=== PATIENT | female | born 1955 | race Two or more races ===

== ENCOUNTER 2019-03-09 10:01 | Observation (INO) | payer MEDICARE, MEDICAID ==
[2019-03-09] MEDS ORDERED: NORMAL SALINE 1000 ML 1,000 ML IV ONE (10:17)
[2019-03-09] MEDS ORDERED: DIPH/PERTUSS(ACELL)/TETANUS VAC/PF 0.5 ML SYR (>=10YO) IM ONE (10:17)
--- NOTE | 2019-03-09 10:20 | ER Document Report ---
ED Medical Screen (RME) - General Stated Complaint: FALL Time Seen by Provider: 03/09/19 10:09 Mode of Arrival: Medic Information source: Patient Notes: Patient states that she was walking outside with her coffee and she got dizzy. Patient states that the next thing she knew she woke up on the pavement after having a syncopal episode. Patient with left-sided facial swelling, ecchymosis and laceration to the lower lip. Patient denies any chest pain back pain or abdominal pain. Patient denies any headache nausea or vomiting. Patient uncertain of last tetanus immunization. Patient denies any recent changes in her medications. Patient only reports a history of degenerative disc disease and restless leg syndrome. I have greeted and performed a rapid initial assessment of this patient. A comprehensive ED assessment and evaluation of the patient, analysis of test results and completion of the medical decision making process will be conducted by additional ED providers. - Related Data Allergies/Adverse Reactions: acetaminophen [From Percocet] Allergy (Verified 03/09/19 10:15) oxycodone [From Percocet] Allergy (Verified 03/09/19 10:15) Physical Exam - Vital signs Vitals: Temp Pulse Resp BP Pulse Ox 98.7 F 63 16 132/71 H 96 03/09/19 10:13 03/09/19 10:13 03/09/19 10:13 03/09/19 10:13 03/09/19 10:13 - General Notes: Left side facial swelling and ecchymosis to the left periorbital area and left maxillary sinus area. Patient with laceration to left side of lower lip. Course - Vital Signs Vital signs: Temp Pulse Resp BP Pulse Ox 98.7 F 63 16 132/71 H 96 03/09/19 10:13 03/09/19 10:13 03/09/19 10:13 03/09/19 10:13 03/09/19 10:13
--- NOTE | 2019-03-09 10:41 | RADIOLOGY REPORT (SQ) ---
EXAM DESCRIPTION: CHEST 2 VIEWS COMPLETED DATE/TIME: 03/09/2019 10:30 am REASON FOR STUDY: syncope COMPARISON: None. EXAM PARAMETERS: NUMBER OF VIEWS: two views TECHNIQUE: Digital Frontal and Lateral radiographic views of the chest acquired. RADIATION DOSE: NA LIMITATIONS: none FINDINGS: LUNGS AND PLEURA: No opacities, masses or pneumothorax. No pleural effusion. MEDIASTINUM AND HILAR STRUCTURES: No masses or contour abnormalities. HEART AND VASCULAR STRUCTURES: Heart normal size. No evidence for failure. BONES: No acute findings. HARDWARE: None in the chest. OTHER: No other significant finding. IMPRESSION: No acute abnormality of the lungs. No focal airspace opacity. TECHNICAL DOCUMENTATION: JOB ID: [id number] [email or web address]- All Rights Reserved Reading location - IP/workstation name: [email or web address]
--- NOTE | 2019-03-09 11:04 | RADIOLOGY REPORT (SQ) ---
EXAM DESCRIPTION: CT CERVICAL SPINE WITHOUT COMPLETED DATE/TIME: 03/09/2019 10:51 am REASON FOR STUDY: syncope, facial injury COMPARISON: None. TECHNIQUE: Axial images acquired through the cervical spine without intravenous contrast. Images re viewed with lung, soft tissue and bone windows. Reconstructed coronal and sagittal MPR images review ed. Images stored on PACS. All CT scanners at this facility use dose modulation, iterative reconstruction, and/or weight based d osing when appropriate to reduce radiation dose to as low as reasonably achievable (ALARA). [facility]: Dose Right [facility]: CareDose [facility]: Dose Right [facility]: Teradose 4D [facility]: [employer] RADIATION DOSE: CT Rad equipment meets quality standard of care and radiation dose reduction techniq ues were employed. CTDIvol: 17.5 mGy. DLP: 368 mGy-cm. mGy. LIMITATIONS: None. FINDINGS: ALIGNMENT: Anatomic. MINERALIZATION: Normal. VERTEBRAL BODIES: No fractures or dislocation. DISCS: Status post anterior cervical fusion of C5 through C7. FACETS, LATERAL MASSES, POSTERIOR ELEMENTS: No fractures. No dislocation. No acute findings. HARDWARE: None in the spine. VISUALIZED RIBS: No fractures. LUNG APICES AND SOFT TISSUES: No significant or acute findings. OTHER: No other significant finding. IMPRESSION: No fracture or static subluxation of the cervical spine. TECHNICAL DOCUMENTATION: JOB ID: [id number] Quality ID # [id number]: Final reports with documentation of one or more dose reduction techniques (e.g., Au tomated exposure control, adjustment of the mA and/or kV according to patient size, use of iterative reconstruction technique) 2010 [employer]- All Rights Reserved Reading location - IP/workstation name: [email or web address]
--- NOTE | 2019-03-09 11:05 | RADIOLOGY REPORT (SQ) ---
EXAM DESCRIPTION: CT FACIAL AREA WITHOUT COMPLETED DATE/TIME: 03/09/2019 10:51 am REASON FOR STUDY: syncope, facial injury COMPARISON: None. TECHNIQUE: Noncontrasted images through the facial bones and orbits windowed for bone and soft tissu e. Additional coronal and sagittal reconstructed images reviewed. All images stored on PACS. All CT scanners at this facility use dose modulation, iterative reconstruction, and/or weight based d osing when appropriate to reduce radiation dose to as low as reasonably achievable (ALARA). [facility]: Dose Right [facility]: CareDose [facility]: Dose Right [facility]: Teradose 4D [facility]: [employer] RADIATION DOSE: CT Rad equipment meets quality standard of care and radiation dose reduction techniq ues were employed. CTDIvol: 30.4 mGy. DLP: 862 mGy-cm. mGy. LIMITATIONS: Excessive patient movement. Scan repeated. FINDINGS: FACIAL BONES: Minimally displaced fracture of the left orbital floor. Nondisplaced left n canelo fracture. ORBITS: No evidence of extraocular muscle entrapment. PARANASAL SINUSES: Fluid left maxillary sinus. SOFT TISSUES: Left facial hematoma. INFERIOR BRAIN: See separate report. OTHER: No other significant finding. IMPRESSION: Limitations due to motion. Fracture of the left orbital floor. Left nasal fracture. TECHNICAL DOCUMENTATION: JOB ID: [id number] Quality ID # [id number]: Final reports with documentation of one or more dose reduction techniques (e.g., Au tomated exposure control, adjustment of the mA and/or kV according to patient size, use of iterative reconstruction technique) 2010 [employer]- All Rights Reserved Reading location - IP/workstation name: [email or web address]
--- NOTE | 2019-03-09 11:06 | RADIOLOGY REPORT (SQ) ---
EXAM DESCRIPTION: CT HEAD WITHOUT COMPLETED DATE/TIME: 03/09/2019 10:51 am REASON FOR STUDY: syncope, head injury COMPARISON: None. TECHNIQUE: Axial images acquired through the brain without intravenous contrast. Images reviewed wi th bone, brain and subdural windows. Additional sagittal and coronal reconstructions were generated. Images stored on PACS. All CT scanners at this facility use dose modulation, iterative reconstruction, and/or weight based d osing when appropriate to reduce radiation dose to as low as reasonably achievable (ALARA). [facility]: Dose Right [facility]: CareDose [facility]: Dose Right [facility]: Teradose 4D [facility]: Smart [employer] RADIATION DOSE: CT Rad equipment meets quality standard of care and radiation dose reduction techniq ues were employed. CTDIvol: 53.2 mGy. DLP: 991 mGy-cm. mGy. LIMITATIONS: Patient movement. FINDINGS: VENTRICLES: Normal size and contour. CEREBRUM: No masses. No hemorrhage. No midline shift. No evidence for acute infarction. Normal gra y/white matter differentiation. No areas of low density in the white matter. CEREBELLUM: No masses. No hemorrhage. No alteration of density. No evidence for acute infarction. EXTRAAXIAL SPACES: No fluid collections. No masses. ORBITS AND GLOBE: See separate report of the same date. CALVARIUM: No fracture. PARANASAL SINUSES: See separate report of the same date. SOFT TISSUES: Left facial hematoma. OTHER: No other significant finding. IMPRESSION: Normal brain. EVIDENCE OF ACUTE STROKE: NO. COMMENT: Quality ID # 436: Final reports with documentation of one or more dose reduction techniques (e.g., Automated exposure control, adjustment of the mA and/or kV according to patient size, use of iterative reconstruction technique) TECHNICAL DOCUMENTATION: JOB ID: [id number] [employer]- All Rights Reserved Reading location - IP/workstation name: [email or web address]
[2019-03-09 11:13] LABS: ABSOLUTE BASOPHILS # (AUTO) 0.1 10^3/uL (0.0-0.2); ABSOLUTE LYMPHOCYTES (AUTO) 1.2 10^3/uL (0.5-4.7); ABSOLUTE MONOCYTES (AUTO) 0.8 10^3/uL (0.1-1.4); ABSOLUTE NEUT (AUTO) 12.9 10^3/uL (1.7-8.2); BASOPHILS % (AUTO) 0.5 % (0-2); EOSINOPHILS % (AUTO) 0.2 % (0-6); HEMATOCRIT 45.8 % (36.0-47.0); HEMOGLOBIN 15.2 g/dL (12.0-15.5); MEAN CORPUSCULAR HEMOGLOBIN 30.1 pg (27.0-33.4); MEAN CORPUSCULAR HGB CONC 33.2 g/dL (32.0-36.0); MEAN CORPUSCULAR VOLUME 91 fl (80-97); MONOCYTES % (AUTO) 5.5 % (3-13); PLATELET COUNT 307 10^3/uL (150-450); RED BLOOD COUNT 5.05 10^6/uL (3.72-5.28); RED CELL DISTRIBUTION WIDTH 14.4 % (11.5-14.0); SEGMENTED NEUTROPHILS % (AUTO) 85.8 % (42-78); TOTAL CELLS COUNTED % (AUTO) 100 %
[2019-03-09 11:26] LABS: ALBUMIN 4.3 g/dL (3.5-5.0); ALKALINE PHOSPHATASE 87 U/L (38-126); ANION GAP 10 (5-19); ASPARTATE AMINO TRANSFERASE 24 U/L (14-36); BILIRUBIN,DIRECT 0.2 mg/dL (0.0-0.4); BILIRUBIN,TOTAL 0.4 mg/dL (0.2-1.3); BLOOD UREA NITROGEN 13 mg/dL (7-20); CALCIUM 9.7 mg/dL (8.4-10.2); CARBON DIOXIDE 25 mmol/L (22-30); CHLORIDE 106 mmol/L (98-107); GLUCOSE 117 mg/dL (75-110); POTASSIUM 4.6 mmol/L (3.6-5.0); TOTAL PROTEIN 6.9 g/dL (6.3-8.2)
[2019-03-09 12:08] LABS: APPEARANCE,URINE CLEAR; BILIRUBIN,URINE NEGATIVE (NEGATIVE); COLOR,URINE YELLOW; GLUCOSE, URINE NEGATIVE (NEGATIVE); KETONES,URINE TRACE mg/dL (NEGATIVE); LEUKOCYTE ESTERASE,URINE NEGATIVE (NEGATIVE); NITRITE,URINE NEGATIVE (NEGATIVE); PROTEIN,URINE NEGATIVE (NEGATIVE); URINE SPECIFIC GRAVITY 1.013; UROBILINOGEN,URINE NEGATIVE mg/dL (<2.0)
--- NOTE | 2019-03-09 12:38 | ER Document Report ---
Entered by OK RANKIN SCRIBE 03/09/19 1213 Acting as scribe for:CONOR MENENDEZ MD ED General - General Chief Complaint: Fall Injury Stated Complaint: FALL Time Seen by Provider: 03/09/19 10:09 Mode of Arrival: Medic Notes: Patient is a 63-year-old female presenting to the emergency department after she experienced a fall. Patient states that she was drinking coffee this morning on the sidewalk, she felt raindrops and attempted to get shade. Patient states that she immediately had a "drunk feeling" upon asking further questions she states it was kind of like a dizziness, lightheadedness. Patient states that after having that feeling she does not recall anything. Patient states that she is feeling nauseous, she is also experiencing abdominal pain. Patient denies having any chest pain, palpitation, fever, or having a history of heart attacks, strokes. TRAVEL OUTSIDE OF THE [place] IN LAST 30 DAYS: No - Related Data Allergies/Adverse Reactions: acetaminophen [From Percocet] Allergy (Verified 03/09/19 10:15) oxycodone [From Percocet] Allergy (Verified 03/09/19 10:15) Past Medical History - General Information source: Patient - Social History Smoking Status: Current Some Day Smoker Cigarette use (# per day): Yes Chew tobacco use (# tins/day): No Frequency of alcohol use: None Drug Abuse: None Family History: Reviewed & Not Pertinent - Past Medical History Cardiac Medical History: Denies: Other - Heart attacks, [place] Neurological Medical History: Denies: Hx Cerebrovascular Accident Review of Systems - Review of Systems Constitutional: No symptoms reported. denies: Fever EENT: No symptoms reported Cardiovascular: No symptoms reported Respiratory: No symptoms reported Gastrointestinal: See HPI, Abdominal pain, Nausea Genitourinary: No symptoms reported Female Genitourinary: No symptoms reported Musculoskeletal: No symptoms reported Skin: No symptoms reported Hematologic/Lymphatic: No symptoms reported Neurological/Psychological: No symptoms reported -: Yes All other systems reviewed and negative Physical Exam - Vital signs Vitals: Temp Pulse Resp BP Pulse Ox 98.7 F 63 16 132/71 H 96 03/09/19 10:13 03/09/19 10:13 03/09/19 10:13 03/09/19 10:13 03/09/19 10:13 - Notes Notes: Physical Exam: General: Alert, appears well. HEENT: Lip laceration at the left lower lip, half a centimeter deep, 1 cm long, does not cross the vermilion line. PERRL, negative hiphnema. Multiple contusions on the face. Left maxillary contusion, left forehead contusion. Negative septal hematoma. Extraocular movements intact. Oropharynx clear. Neck: Supple. Non-tender. Respiratory: No respiratory distress. Clear and equal breath sounds bilaterally. Cardiovascular: Regular rate and rhythm. Abdominal: Normal Inspection. Non-tender. No distension. Normal Bowel Sounds. Back: Midline cervical musculature tenderness to palpation. No pain in lumbar spine. No deformity or step off. Extremities: Moves all four extremities. Upper extremities: Normal inspection. Normal ROM. Lower extremities: Normal inspection. No edema. Normal ROM. Neurological: Normal cognition. AAOx4. Normal speech. Psychological: Normal affect. Normal Mood. Skin: Warm. Dry. Normal color. Course - Re-evaluation Re-evalutation: 03/09/19 12:37 Patient has been able to space orbital floor fracture with no entrapment and no pain with ocular movement and nondisplaced nasal fracture. Discussed case with Dr. Kuhn, will be admitted for syncopal work-up at this time - Vital Signs Vital signs: Temp Pulse Resp BP Pulse Ox 98.5 F 58 L 13 125/82 95 03/11/19 12:00 03/11/19 12:00 03/11/19 12:00 03/11/19 12:00 03/11/19 12:00 - Laboratory Result Diagrams: 03/11/19 05:29 03/11/19 05:29 Laboratory results interpreted by me: 03/09/19 03/09/19 03/09/19 10:40 10:40 11:50 WBC 15.0 H RDW 14.4 H Seg Neutrophils % 85.8 H Lymphocytes % 8.0 L Absolute Neutrophils 12.9 H Glucose 117 H Urine Ketones TRACE H Urine Blood MODERATE H Discharge - Discharge Clinical Impression: Syncope and collapse, Facial trauma Condition: Good Disposition: ADMITTED INPATIENT Admitting Provider: Hattie (Hospitalist) Unit Admitted: Telemetry Scribe Attestation: 03/11/19 13:46 I personally performed the services described documentation, reviewed and edited the documentation which was dictated to describe my presence, and it accurately records my words and actions. I personally performed the services described in the documentation, reviewed and edited the documentation which was dictated to the scribe in my presence, and it accurately records my words and actions.
--- NOTE | 2019-03-09 15:41 | RADIOLOGY REPORT (SQ) ---
EXAM DESCRIPTION: CAROTID DOPPLER COMPLETED DATE/TIME: 03/09/2019 3:27 pm REASON FOR STUDY: syncope COMPARISON: None. TECHNIQUE: Grayscale ultrasound, Doppler velocity and spectra, and color Doppler images acquired of the extra-cranial carotid and vertebral arteries. Images stored on PACS. LIMITATIONS: None. FINDINGS: RIGHT CAROTID CCA Velocities: Within normal limits. ICA Velocities Peak systolic 1.11 m/s. End diastolic 0.46 m/s. Proximal ICA/CCA peak systolic ratio 1.38. Spectra normal. No significant plaque. LEFT CAROTID CCA Velocities: Within normal limits. ICA Velocities Peak systolic 1.18 m/s. End diastolic 0.31 m/s. Proximal ICA/CCA peak systolic ratio 1.29. Spectra normal. No significant plaque. VERTEBRAL ARTERIES: Antegrade flow. Normal waveforms. SUBCLAVIAN ARTERIES: No finding. OTHER: No other significant finding. IMPRESSION: NO HEMODYNAMICALLY SIGNIFICANT STENOSIS. COMMENT: Quality ID #[id number]: Velocity criteria are extrapolated from the diameter data as defined by t he Society of Radiologists in Ultrasound Consensus Conference. Radiology 2003: 229; 340-346. TECHNICAL DOCUMENTATION: JOB ID: [id number] [employer]- All Rights Reserved Reading location - IP/workstation name: [email or web address]
[2019-03-09] MEDS ORDERED: KETOROLAC TROMETHAMINE INJ/PF 30 MG/1 ML SDV IV PRN (16:42)
[2019-03-09] MEDS ORDERED: (PENDING PHARMACY ID) (Butalb/Acetaminophen/Caffeine [Fioricet 50-300-40 Mg Capsule] 1 CAP PO PRN (16:43)
[2019-03-09] MEDS ORDERED: KETOROLAC TROMETHAMINE INJ/PF 30 MG/1 ML SDV ONE (16:44)
[2019-03-09] MEDS ORDERED: BUTALB/ACETAMINOPHEN/CAFFEINE 1 TAB EACH PO PRN (16:46)
--- NOTE | 2019-03-09 17:37 | PDOC H&P ---
History of Present Illness Patient complains of: syncope History of Present Illness: BEN MCDANIELS is a 63 year old female with no significant past medical history aside from restless leg syndrome who was brought in because of syncope. Patient says that she was standing in a parking lot earlier this morning when she felt dizzy as if she was drunk. She says she passed out but denies any post episode confusion. No urinary or bowel incontinence. She denies palpitations, chest pain or shortness of breath prior to the episode. She denies any unilateral weakness, tingling sensation or numbness. No reported aphasia or slurring. Past Medical History Cardiac Medical History: Denies: Other - Heart attacks, [place] Social History Smoking Status: Current Some Day Smoker Family History Family History: Reviewed & Not Pertinent Parental Family History Reviewed: Yes - no premature CAD Children Family History Reviewed: No Sibling(s) Family History Reviewed.: No Medication/Allergy Home Medications: Baclofen [Baclofen 20 mg Tablet] 20 mg PO TID 03/09/19 Butalb/Acetaminophen/Caffeine [Fioricet 50-300-40 mg Capsule] 1 cap PO Q4HP PRN 03/09/19 Carbidopa/Levodopa [Sinemet 10-100 mg Tablet] 1 tab PO Q8 03/09/19 Cetirizine HCl [Zyrtec 10 mg Tablet] 10 mg PO DAILY 03/09/19 Montelukast Sodium [Singulair 10 mg Tablet] 10 mg PO QPM 03/09/19 Allergies/Adverse Reactions: acetaminophen [From Percocet] Allergy (Verified 03/09/19 10:15) oxycodone [From Percocet] Allergy (Verified 03/09/19 10:15) Review of Systems All systems: reviewed and no additional remarkable complaints except as stated - As mentioned in HPI Physical Exam Vital Signs: Temp Pulse Resp BP Pulse Ox 98.7 F 63 16 132/71 H 96 03/09/19 10:13 03/09/19 10:13 03/09/19 10:13 03/09/19 10:13 03/09/19 10:13 Intake & Output 03/08/19 03/09/19 03/10/19 06:59 06:59 06:59 Weight 180 lb General appearance: PRESENT: no acute distress, well-developed, well-nourished Head exam: PRESENT: normocephalic, other - Hematoma on the left periorbital area and left nasal area Eye exam: PRESENT: conjunctiva pink, EOMI, PERRLA. ABSENT: scleral icterus Ear exam: PRESENT: normal external ear exam Mouth exam: PRESENT: moist, tongue midline Neck exam: ABSENT: carotid bruit, JVD, lymphadenopathy, thyromegaly Respiratory exam: PRESENT: clear to auscultation alfredo. ABSENT: rales, rhonchi, wheezes Cardiovascular exam: PRESENT: RRR. ABSENT: diastolic murmur, rubs, systolic murmur Pulses: PRESENT: normal dorsalis pedis pul GI/Abdominal exam: PRESENT: normal bowel sounds, soft. ABSENT: distended, gu arding, mass, organolmegaly, rebound, tenderness Rectal exam: PRESENT: deferred Extremities exam: PRESENT: full ROM. ABSENT: calf tenderness, clubbing, pedal edema Neurological exam: PRESENT: alert, awake, oriented to person, oriented to place, oriented to time, oriented to situation, CN II-XII grossly intact. ABSENT: mot or sensory deficit Results Laboratory Results: 03/09/19 10:40 03/09/19 10:40 03/09/19 03/09/19 03/09/19 10:40 10:40 11:50 WBC 15.0 H RBC 5.05 Hgb 15.2 Hct 45.8 MCV 91 MCH 30.1 MCHC 33.2 RDW 14.4 H Plt Count 307 Seg Neutrophils % 85.8 H Lymphocytes % 8.0 L Monocytes % 5.5 Eosinophils % 0.2 Basophils % 0.5 Absolute Neutrophils 12.9 H Absolute Lymphocytes 1.2 Absolute Monocytes 0.8 Absolute Eosinophils 0.0 Absolute Basophils 0.1 Sodium 140.6 Potassium 4.6 Chloride 106 Carbon Dioxide 25 Anion Gap 10 BUN 13 Creatinine 0.68 Est GFR ( Amer) > 60 Est GFR (Non-Af Amer) > 60 Glucose 117 H Calcium 9.7 Total Bilirubin 0.4 AST 24 Alkaline Phosphatase 87 Total Protein 6.9 Albumin 4.3 Urine Color YELLOW Urine Appearance CLEAR Urine pH 6.0 Ur Specific [place] 1.013 Urine Protein NEGATIVE Urine Glucose (UA) NEGATIVE Urine Ketones TRACE H Urine Blood MODERATE H Urine Nitrite NEGATIVE Ur Leukocyte Esterase NEGATIVE Urine WBC (Auto) 0 Urine RBC (Auto) 2 03/09/19 10:40 Troponin I < 0.012 Impressions: Chest X-Ray 03/09/19 10:16 IMPRESSION: No acute abnormality of the lungs. No focal airspace opacity. Head CT 03/09/19 10:16 IMPRESSION: Normal brain. EVIDENCE OF ACUTE STROKE: NO. Cervical Spine CT 03/09/19 10:17 IMPRESSION: No fracture or static subluxation of the cervical spine. Facial Bones CT 03/09/19 10:17 IMPRESSION: Limitations due to motion. Fracture of the left orbital floor. Left nasal fracture. Assessment and Plan - Diagnosis (1) Syncope Is this a current diagnosis for this admission?: Yes Plan: CT head was unremarkable. We will check orthostatic vital signs. Will place patient on telemetry monitoring overnight. Will check carotid Doppler as well. (2) Facial trauma Is this a current diagnosis for this admission?: Yes Plan: Trauma work-up was remarkable for nondisplaced left nasal fracture and mildly displaced eft orbital fracture. These will be managed conservatively. - Time Time Spent with patient: 25-34 minutes
--- NOTE | 2019-03-09 17:38 | ADVANCED CARE ---
- Diagnosis (1) Syncope Diagnosis Current: Yes (2) Facial trauma Diagnosis Current: Yes Resuscitation Status: Full Code Discussion: Discussed with patient and daughter on the bedside. She says she is a full code and prefers chest compressions, defibrillation or mechanical ventilation if the need arises. She does verbalize she does not want to be on long-term ventilation. She says that her daughter on bedside, Tash is her surrogate medical decision maker.
[2019-03-09] MEDS: BACLOFEN 20 MG TABLET PO SCH (18:37)
[2019-03-09] MEDS: MONTELUKAST SODIUM 10 MG TABLET PO SCH (18:37)
[2019-03-09] MEDS: CARBIDOPA/LEVODOPA 10-100 MG TABLET PO SCH (21:44)
[2019-03-09] MEDS: HEPARIN SOD (PORCINE) 5,000 UNIT/ML 1 ML VIAL SUBCUT SCH (21:46)
[2019-03-10] MEDS: CARBIDOPA/LEVODOPA 10-100 MG TABLET PO SCH (05:20)
--- NOTE | 2019-03-10 10:33 | EKG REPORT ---
SEVERITY:- NORMAL ECG - SINUS RHYTHM : Confirmed by: Codie Adkins 10-Mar-2019 10:33:28
[2019-03-10] MEDS: BACLOFEN 20 MG TABLET PO SCH ×3 (11:11→18:46)
[2019-03-10] MEDS: HEPARIN SOD (PORCINE) 5,000 UNIT/ML 1 ML VIAL SUBCUT SCH ×2 (11:11→21:15)
[2019-03-10] MEDS: CETIRIZINE 10 MG TABLET PO SCH (11:11)
[2019-03-10 13:13] LABS: FREE T3 4.46 pg/mL (2.77-5.27); FREE T4 (FREE THYROXINE) 1.3 ng/dL (0.78-2.19)
[2019-03-10 13:27] LABS: THYROID STIMULATING HORMONE 0.81 uIU/mL (0.47-4.68)
--- NOTE | 2019-03-10 16:21 | RADIOLOGY REPORT (SQ) ---
EXAM DESCRIPTION: NM LUNG VENT/PERF SCAN COMPLETED DATE/TIME: 03/10/2019 3:53 pm REASON FOR STUDY: assess for PE R00.1 BRADYCARDIA, UNSPECIFIED R55 SYNCOPE AND COLLAPSE COMPARISON: Chest radiograph 03/09/2019 RADIONUCLIDE AND DOSE: 5.14 millicuries TC-99m MAA Intravenous 31.5 millicuries TC-99m DTPA Inhaled aerosol TECHNIQUE: Eight views of the lungs acquired post ventilation of DTPA aerosol. Eight matching views of the lungs acquired following injection of MAA. LIMITATIONS: None. FINDINGS: VENTILATION: Symmetric and homogeneous distribution of DTPA aerosol during ventilatory pha se. No significant areas of photopenia. PERFUSION: Perfusion images with normal homogenous activity and no wedge-shaped or segmental defects. No ventilation-perfusion mismatches. OTHER: No other significant finding. IMPRESSION: NORMAL VENTILATION-PERFUSION LUNG SCAN. NEGATIVE FOR PULMONARY EMBOLI. TECHNICAL DOCUMENTATION: JOB ID: [id number] [employer]- All Rights Reserved Reading location - IP/workstation name: [email or web address]
--- NOTE | 2019-03-10 17:18 | PDOC PROGRESS REPORT ---
Subjective Progress Note for:: 03/10/19 Subjective:: This is 63 yr old female who was admitted for syncope. She has been doing well. No acute event overnight. However, this morning, her heart rate started going down to the 48-50s. She deneis chest pain, SOB or dizziness. Reason For Visit: SYNCOPE Physical Exam Vital Signs: Temp Pulse Resp BP Pulse Ox 98.3 F 56 L 14 97/60 L 94 03/10/19 02:00 03/10/19 02:00 03/10/19 02:00 03/10/19 02:00 03/10/19 02:00 Intake & Output 03/09/19 03/10/19 03/11/19 06:59 06:59 06:59 Intake Total 1720 Balance 1720 Weight 186 lb 8.177 oz General appearance: PRESENT: no acute distress, well-developed, well-nourished Head exam: PRESENT: atraumatic, normocephalic Eye exam: PRESENT: conjunctiva pink, EOMI, PERRLA. ABSENT: scleral icterus Ear exam: PRESENT: normal external ear exam Mouth exam: PRESENT: moist, tongue midline Neck exam: ABSENT: carotid bruit, JVD, lymphadenopathy, thyromegaly Respiratory exam: PRESENT: clear to auscultation alfredo. ABSENT: rales, rhonchi, w heezes Cardiovascular exam: PRESENT: bradycardia, RRR. ABSENT: diastolic murmur, rubs, systolic murmur Pulses: PRESENT: normal dorsalis pedis pul GI/Abdominal exam: PRESENT: normal bowel sounds, soft. ABSENT: distended, gua rding, mass, organolmegaly, rebound, tenderness Rectal exam: PRESENT: deferred Extremities exam: PRESENT: full ROM. ABSENT: calf tenderness, clubbing, pedal edema Neurological exam: PRESENT: alert, awake, oriented to person, oriented to place, oriented to time, oriented to situation, CN II-XII grossly intact. ABSENT: latonya r sensory deficit Results Laboratory Results: 03/09/19 10:40 03/09/19 10:40 03/10/19 10:40 TSH 0.81 Free T4 1.30 Free T3 pg/mL 4.46 03/09/19 10:40 Troponin I < 0.012 Impressions: Carotid Doppler Study 03/09/19 00:00 IMPRESSION: NO HEMODYNAMICALLY SIGNIFICANT STENOSIS. Chest X-Ray 03/09/19 10:16 IMPRESSION: No acute abnormality of the lungs. No focal airspace opacity. Head CT 03/09/19 10:16 IMPRESSION: Normal brain. EVIDENCE OF ACUTE STROKE: NO. Cervical Spine CT 03/09/19 10:17 IMPRESSION: No fracture or static subluxation of the cervical spine. Facial Bones CT 03/09/19 10:17 IMPRESSION: Limitations due to motion. Fracture of the left orbital floor. Left nasal fracture. Assessment and Plan - Diagnosis (1) Syncope Is this a current diagnosis for this admission?: Yes Plan: CT brain was unremarkable. Orthostatic vital signs. Unremarkable telemetry monitoring overnight. Carotid Doppler normal. However, this morning, her heart rate started going down to the 40-50s. Will check a thyroid panel and echo. (2) Facial trauma Is this a current diagnosis for this admission?: Yes Plan: Trauma work-up was remarkable for nondisplaced left nasal fracture and mildly displaced eft orbital fracture. These will be managed conservatively. - Time Time Spent with patient: 25-34 minutes
[2019-03-10] MEDS: MONTELUKAST SODIUM 10 MG TABLET PO SCH (18:47)
[2019-03-10] MEDS ORDERED: ROPINIROLE HCL 0.25 MG TABLET PO SCH (22:00)
--- NOTE | 2019-03-11 00:18 | XCELERA REPORT ---
[address] [address] Transthoracic Echocardiogram Report Name: BEN MCDANIELS Age: 63 yrs Gender: Female : 1955 Patient Status: Inpatient Patient Location: [address] [place] [address] Study Date: 03/10/2019 03:42 PM Height: 65 in Weight: 186 lb BSA: 1.9 m2 Procedure: A two-dimensional transthoracic echocardiogram with color flow and Doppler was performed. The study was technically difficult with many images being suboptimal in quality. Reason For Study: recurrent syncope, new onset bradycardia History: recurrent syncope, new onset bradycardia. Ordering Physician: JOSHUA LOMELI Performed By: Aruna Pereyra Interpretation Summary The left ventricle is normal in size. There is normal left ventricular wall thickness. The left ventricular ejection fraction is within normal limits. LV EF is 70% Doppler measurements suggest normal left ventricular diastolic function The left ventricular wall motion is normal. There is no thrombus. No ASD ,VSD or PFO. The right ventricle is normal in size and function. The right atrium is normal. The left atrial size is normal. There is no evidence of mitral valve prolapse. There is no vegetation seen on the mitral valve. There is no mitral valve stenosis. There is a mild amount of mitral regurgitation There is no aortic valvular vegetation. There is aortic sclerosis without aortic stenosis. There is no LVOT obstruction. No aortic regurgitation is present. There is no tricuspid stenosis. There is a trace to mild amount of tricuspid regurgitation There is mild pulmonary hypertension by echo RSVP is equal to 36 to 41 mm of Hg , with RA mean of 5 to 10. There is no pulmonic valvular stenosis. There is a trace amount of pulmonic regurgitation The aortic root is normal size. The inferior vena cava appeared normal and decreased > 50% with respiration (RAP 5-10 mmHg) There is no pericardial effusion. MMode/2D Measurements & Calculations RVDd: 3.2 cm LVIDd: 4.8 cm FS: 41.7 % Ao root diam: 2.9 cm IVSd: 0.97 cm LVIDs: 2.8 cm EDV(Teich): 106.7 ml Ao root area: 6.4 cm2 LVPWd: 0.98 cm ESV(Teich): 29.3 ml LA dimension: 3.6 cm EF(Teich): 72.5 % Doppler Measurements & Calculations MV E max surya: MV P1/2t max surya: Ao V2 max: LV V1 max P.7 cm/sec 99.7 cm/sec 145.0 cm/sec 4.5 mmHg MV A max surya: MV P1/2t: 42.1 msec Ao max P.4 mmHg LV V1 max: 83.9 cm/sec MVA(P1/2t): 5.2 cm2 105.8 cm/sec MV E/A: 1.2 MV dec slope: 693.9 cm/sec2 MV dec time: 0.16 sec PA V2 max: TR max surya: MV P1/2t-pr_phl: 72.6 cm/sec 279.6 cm/sec 42.1 msec PA max PG: TR max P.3 mmHg 2.1 mmHg Left Ventricle The left ventricle is normal in size. There is normal left ventricular wall thickness. The left ventricular ejection fraction is within normal limits. LV EF is 70%. Doppler measurements suggest normal left ventricular diastolic function. The left ventricular wall motion is normal. There is no thrombus. No ASD ,VSD or PFO. Right Ventricle The right ventricle is normal in size and function. Atria The right atrium is normal. The left atrial size is normal. Mitral Valve There is no evidence of mitral valve prolapse. There is no vegetation seen on the mitral valve. There is no mitral valve stenosis. There is a mild amount of mitral regurgitation. Aortic Valve There is no aortic valvular vegetation. There is aortic sclerosis without aortic stenosis. There is no LVOT obstruction. No aortic regurgitation is present. Tricuspid Valve There is no tricuspid stenosis. There is a trace to mild amount of tricuspid regurgitation. There is mild pulmonary hypertension by echo. RSVP is equal to 36 to 41 mm of Hg , with RA mean of 5 to 10. Pulmonic Valve There is no pulmonic valvular stenosis. There is a trace amount of pulmonic regurgitation. Great Vessels The aortic root is normal size. The inferior vena cava appeared normal and decreased > 50% with respiration (RAP 5-10 mmHg). Effusions There is no pericardial effusion. : JOSHUA LOMELI > Deborah Dover
[2019-03-11] MEDS ORDERED: CARBIDOPA/LEVODOPA 10-100 MG TABLET PO ONE (00:30)
[2019-03-11 05:51] LABS: ABSOLUTE BASOPHILS # (AUTO) 0.1 10^3/uL (0.0-0.2); ABSOLUTE EOSINOPHILS # (AUTO) 0.1 10^3/uL (0.0-0.6); ABSOLUTE LYMPHOCYTES (AUTO) 2.7 10^3/uL (0.5-4.7); ABSOLUTE MONOCYTES (AUTO) 0.7 10^3/uL (0.1-1.4); ABSOLUTE NEUT (AUTO) 3.7 10^3/uL (1.7-8.2); BASOPHILS % (AUTO) 1.2 % (0-2); EOSINOPHILS % (AUTO) 1.5 % (0-6); HEMATOCRIT 44.8 % (36.0-47.0); LYMPHOCYTES % (AUTO) 36.9 % (13-45); MEAN CORPUSCULAR HEMOGLOBIN 30.2 pg (27.0-33.4); MEAN CORPUSCULAR HGB CONC 33.5 g/dL (32.0-36.0); MEAN CORPUSCULAR VOLUME 90 fl (80-97); MONOCYTES % (AUTO) 10.1 % (3-13); PLATELET COUNT 284 10^3/uL (150-450); RED BLOOD COUNT 4.98 10^6/uL (3.72-5.28); SEGMENTED NEUTROPHILS % (AUTO) 50.3 % (42-78); TOTAL CELLS COUNTED % (AUTO) 100 %; WHITE BLOOD COUNT 7.3 10^3/uL (4.0-10.5)
[2019-03-11] MEDS ORDERED: CARBIDOPA/LEVODOPA 10-100 MG TABLET PO SCH (06:00)
[2019-03-11 06:13] LABS: ANION GAP 11 (5-19); BLOOD UREA NITROGEN 17 mg/dL (7-20); CALCIUM 9.2 mg/dL (8.4-10.2); CARBON DIOXIDE 23 mmol/L (22-30); CHLORIDE 106 mmol/L (98-107); GLUCOSE 89 mg/dL (75-110); POTASSIUM 4.3 mmol/L (3.6-5.0)
[2019-03-11] MEDS: BACLOFEN 20 MG TABLET PO SCH (11:14)
[2019-03-11] MEDS: HEPARIN SOD (PORCINE) 5,000 UNIT/ML 1 ML VIAL SUBCUT SCH (11:15)
[2019-03-11] MEDS: CETIRIZINE 10 MG TABLET PO SCH (11:15)
--- NOTE | 2019-03-11 11:42 | EKG REPORT ---
SEVERITY:- OTHERWISE NORMAL ECG - SINUS BRADYCARDIA : Confirmed by: Codie Adkins 11-Mar-2019 11:42:12
[2019-03-11 12:41] VITALS: BP 125/82
--- NOTE | 2019-03-11 17:33 | PDOC DISCHARGE SUMMARY ---
General - Admit/Disc Date/PCP Admission Date/Primary Care Provider: 03/09/19 13:51 Discharge Date: 03/11/19 - Discharge Diagnosis (1) Syncope Is this a current diagnosis for this admission?: Yes (2) Facial trauma Is this a current diagnosis for this admission?: Yes - Additional Information Resuscitation Status: Full Code Discharge Activity: Activity As Tolerated Home Medications: Baclofen [Baclofen 20 mg Tablet] 20 mg PO TID 03/09/19 Butalb/Acetaminophen/Caffeine [Fioricet 50-300-40 mg Capsule] 1 cap PO Q4HP PRN 03/09/19 Carbidopa/Levodopa [Sinemet 10-100 mg Tablet] 1 tab PO Q8 03/09/19 Cetirizine HCl [Zyrtec 10 mg Tablet] 10 mg PO DAILY 03/09/19 Montelukast Sodium [Singulair 10 mg Tablet] 10 mg PO QPM 03/09/19 History of Present Illness History of Present Illness: BEN MCDANIELS is a 63 year old female with no significant past medical history aside from restless leg syndrome who was brought in because of syncope. Patient says that she was standing in a parking lot earlier this morning when she felt dizzy as if she was drunk. She says she passed out but denies any post episode confusion. No urinary or bowel incontinence. She denies palpitations, chest pain or shortness of breath prior to the episode. She denies any unilateral weakness, tingling sensation or numbness. No reported aphasia or slurring. Hospital Course Hospital Course: This is 63 yr old female who was admitted for syncope. CT brain was unremarkable. Trauma work-up was remarkable for nondisplaced left nasal fracture and mildly displaced left orbital fracture which were managed conservatively. She did have transient episode of her heart rate going to 48 to 50s. However her blood pressures remained normal and she remained asymptomatic during these episodes. Her orthostatic vital signs were also unremarkable. She underwent extensive work-up for her syncope including a normal carotid Doppler, unremarkable echocardiogram and uneventful telemetry monitoring aside from transient stable/asymptomatic bradycardia. We did discuss that her being in baclofen and levodopa/carbidopa can potentially contribute to fluctuations in her blood pressures and possible side effects of fainting. She is not amenable to modifying her home medication as she says that she has seen multiple doctors and neurologist to try different medications for her restless leg syndrome but only her carbidopa levodopa has given her some form of relief. She she says she will will closely follow-up with her PCP and her neurologist to further obtain further opinion and recommendations. Physical Exam Vital Signs: Temp Pulse Resp BP Pulse Ox 98.5 F 58 L 13 125/82 95 03/11/19 12:00 03/11/19 12:00 03/11/19 12:00 03/11/19 12:00 03/11/19 12:00 Pulse Oximeter Nocturnal Start: 03/10/19 12: 59 Freq: RTPRN Status: Complete Protocol: Document 03/11/19 04:52 BOR (Rec: 03/11/19 04:53 BOR [id number]) Nocturnal Pulse Oximetry Equipment Usage Equipment in Use Oxygen Delivery Method (includes room Room Air air) O2 Sat by Pulse Oximetry (92-100) 94 Continuous SpO2 Machine # 13 Intake & Output 03/10/19 03/11/19 03/12/19 06:59 06:59 06:59 Intake Total 1720 1916 Output Total 500 Balance 1720 1416 Weight 186 lb 8.177 oz 183 lb 6.793 oz General appearance: PRESENT: no acute distress, well-developed, well-nourished Head exam: PRESENT: atraumatic, normocephalic Eye exam: PRESENT: conjunctiva pink, EOMI, PERRLA. ABSENT: scleral icterus Ear exam: PRESENT: normal external ear exam Mouth exam: PRESENT: moist, tongue midline Neck exam: ABSENT: carotid bruit, JVD, lymphadenopathy, thyromegaly Respiratory exam: PRESENT: clear to auscultation alfredo. ABSENT: rales, rhonchi, wheezes Cardiovascular exam: PRESENT: RRR. ABSENT: diastolic murmur, rubs, systolic murmur Pulses: PRESENT: normal dorsalis pedis pul GI/Abdominal exam: PRESENT: normal bowel sounds, soft. ABSENT: distended, guarding, mass, organolmegaly, rebound, tenderness Rectal exam: PRESENT: deferred Extremities exam: PRESENT: full ROM. ABSENT: calf tenderness, clubbing, pedal edema Neurological exam: PRESENT: alert, awake, oriented to person, oriented to place, oriented to time, oriented to situation, CN II-XII grossly intact. ABSENT: motor sensory deficit Results Laboratory Results: 03/11/19 05:29 08/18/19 05:29 03/11/19 03/11/19 05:29 05:29 WBC 7.3 RBC 4.98 Hgb 15.0 Hct 44.8 MCV 90 MCH 30.2 MCHC 33.5 RDW 14.0 Plt Count 284 Seg Neutrophils % 50.3 Lymphocytes % 36.9 Monocytes % 10.1 Eosinophils % 1.5 Basophils % 1.2 Absolute Neutrophils 3.7 Absolute Lymphocytes 2.7 Absolute Monocytes 0.7 Absolute Eosinophils 0.1 Absolute Basophils 0.1 Sodium 140.0 Potassium 4.3 Chloride 106 Carbon Dioxide 23 Anion Gap 11 BUN 17 Creatinine 0.72 Est GFR ( Amer) > 60 Est GFR (Non-Af Amer) > 60 Glucose 89 Calcium 9.2 03/09/19 10:40 Troponin I < 0.012 Impressions: Carotid Doppler Study 03/09/19 00:00 IMPRESSION: NO HEMODYNAMICALLY SIGNIFICANT STENOSIS. Chest X-Ray 03/09/19 10:16 IMPRESSION: No acute abnormality of the lungs. No focal airspace opacity. Head CT 03/09/19 10:16 IMPRESSION: Normal brain. EVIDENCE OF ACUTE STROKE: NO. Cervical Spine CT 03/09/19 10:17 IMPRESSION: No fracture or static subluxation of the cervical spine. Facial Bones CT 03/09/19 10:17 IMPRESSION: Limitations due to motion. Fracture of the left orbital floor. Left nasal fracture. Lung Scan-VQ CO 03/10/19 12:56 IMPRESSION: NORMAL VENTILATION-PERFUSION LUNG SCAN. NEGATIVE FOR PULMONARY EMBOLI. Qualifiers - * PATIENT BEING DISCHARGED WITH ANY OF THE FOLLOWING DIAGNOSIS: No Acute Heart Failure - Is this a Heart Failure Patient?: No LVEF < 40%?: No- if no continue to question #3 3. Anticoagulant therapy for permanect/persistent/paraoxysmal Afib or Aflutter: N/A
[2019-03-12] MEDS ORDERED: ROPINIROLE HCL 0.25 MG TABLET PO SCH (22:00)
== END 2019-03-11 14:04 | disposition home or self-care (01) ==
LOC: ER 10:01 → EH 13:51 → 5 18:09
PROVIDERS: ADMIT Internal Medicine; ATTEND Internal Medicine
PROC: 3E0234Z Introduction of Serum, Toxoid and Vaccine into Muscle, Percutaneous Approach (ICD-10-PCS; principal; 2019-03-09)
DX: R55 Syncope and collapse (principal); S02.2XXA Fracture of nasal bones, initial encounter for closed fracture; S02.32XA Fracture of orbital floor, left side, initial encounter for closed fracture; S01.511A Laceration without foreign body of lip, initial encounter; W19.XXXA Unspecified fall, initial encounter; Y93.01 Activity, walking, marching and hiking; F17.210 Nicotine dependence, cigarettes, uncomplicated; G25.81 Restless legs syndrome; R00.1 Bradycardia, unspecified; R10.9 Unspecified abdominal pain; R11.0 Nausea; Z79.899 Other long term (current) drug therapy
CPT/HCPCS: 93005 ×2; 99285; 96361; 90471; 96374; 36415 ×3; 84439; 84443; 85025 ×2; 80048; 80053; 81001; 84484; 84481; 93306; 93880; 71046; 78582; 70450; 70486; 72125; 90715; 93010 ×2; 94762; A9540; A9567; A9270 ×4; J1885; J3490 ×2; J7030; Q9969; G0378